=== PATIENT | female | born 1995 | race Caucasian/White ===

== ENCOUNTER → 2017-04-13 | Outpatient (CLI) | payer BC ==
[2017-04-13 14:45] LABS: BASOPHILS % 0.7 % (0.0-2.0); EOSINOPHILS % 1.9 % (0.0-5.0); HEMATOCRIT. 37.8 % (36.0-48.0); HEMOGLOBIN. 12.9 g/dL (12.0-16.0); LYMPHOCYTES % 28.6 % (20.0-50.0); MEAN CORPUSCULAR HEMOGLOBIN 29.9 pg (28.0-32.0); MEAN PLATELET VOLUME 8.5 fl (7.4-10.4); NEUTROPHILS % 63.8 % (40.0-76.0); PLATELET 200 x1000/uL (130-400); RED CELL DISTRIBUTION WIDTH 13.6 % (11.6-14.6)
[2017-04-13 14:51] LABS: CLARITY URINE SL HAZY (CLEAR); COLOR URINE YELLOW (YELLOW); GLUCOSE URINE NEGATIVE (NEGATIVE); KETONES URINE NEGATIVE (NEGATIVE); LEUKOCYTE ESTERASE URINE 1+ (NEGATIVE); NITRITE URINE NEGATIVE (NEGATIVE); OCCULT BLOOD URINE NEGATIVE (NEGATIVE); PROTEIN URINE NEGATIVE (NEGATIVE); SPECIFIC GRAVITY URINE 1.026 (1.005-1.030); UROBILINOGEN URINE 0.2 E.U./dL (0.2-1.0)
[2017-04-13 15:14] LABS: CARBON DIOXIDE 25 mEq/L (21-32); CHLORIDE 107 mEq/L (98-107); HDL CHOLESTEROL 59 mg/dL (40-59); LDL CHOLESTEROL 53 mg/dL (5-100); T4 FREE 1.06 ng/dL (0.76-1.46)
== END | disposition home or self-care (01) ==
LOC: LAB 14:17
PROVIDERS: ATTEND Internal Medicine
DX: Z79.01 Long term (current) use of anticoagulants (principal); Z79.899 Other long term (current) drug therapy
CPT/HCPCS: 36415; 80053; 80061; 81001; 84439; 84443; 84481; 84550; 85025

== ENCOUNTER 2018-06-24 17:40 | Emergency (ER) | payer BC ==
[~2018-06-24] VITALS: Ht 160 cm; Wt 57.0 kg
[2018-06-24 17:48] VITALS: BP 73/70
== END 2018-06-25 | disposition left against medical advice (07) ==
LOC: ER 22:20
DX: Z53.21 Procedure and treatment not carried out due to patient leaving prior to being seen by health care provider (principal)

== ENCOUNTER 2018-06-25 16:22 | Emergency (ER) | payer BC ==
[~2018-06-25] VITALS: Ht 160 cm; Wt 57.0 kg
[2018-06-26 02:29] VITALS: BP 110/62
[2018-06-26 02:29] LABS: CLARITY URINE TURBID (CLEAR); COLOR URINE YELLOW (YELLOW); KETONES URINE TRACE (NEGATIVE); LEUKOCYTE ESTERASE URINE NEGATIVE (NEGATIVE); NITRITE URINE NEGATIVE (NEGATIVE); OCCULT BLOOD URINE 3+ (NEGATIVE); PROTEIN URINE TRACE (NEGATIVE); SPECIFIC GRAVITY URINE 1.038 (1.005-1.030)
== END 2018-06-26 02:30 | disposition home or self-care (01) ==
LOC: ER 16:22
DX: S06.0X9A Concussion with loss of consciousness of unspecified duration, initial encounter (principal); W01.0XXA Fall on same level from slipping, tripping and stumbling without subsequent striking against object, initial encounter; Y93.89 Activity, other specified; Y92.018 Other place in single-family (private) house as the place of occurrence of the external cause
CPT/HCPCS: 81025; 99284

== ENCOUNTER → 2019-07-10 | Outpatient (CLI) | payer BC ==
[2019-07-10 08:54] LABS: HEMATOCRIT 32.1 % (36.0-48.0)
== END | disposition home or self-care (01) ==
LOC: LAB 07:18
PROVIDERS: ATTEND Obstetrics & Gynecology Obstetrics
DX: O24.419 Gestational diabetes mellitus in pregnancy, unspecified control (principal); Z3A.00 Weeks of gestation of pregnancy not specified
CPT/HCPCS: 36415; 82950; 85014; 85018

== ENCOUNTER 2019-09-20 15:10 | Observation (INO) | payer BC ==
[~2019-09-20] VITALS: Ht 160 cm; Wt 70.3 kg
[2019-09-25] MEDS ORDERED: PREN1TAB78 PO (05:41)
[2019-09-25] MEDS ORDERED: FERR-71 PO (05:41)
== END 2019-09-25 07:05 | disposition home or self-care (01) ==
LOC: 8 EST LDRP 09-25 05:13
PROVIDERS: ADMIT Obstetrics & Gynecology Obstetrics; ATTEND Obstetrics & Gynecology Obstetrics
DX: O62.9 Abnormality of forces of labor, unspecified (principal); Z3A.39 39 weeks gestation of pregnancy
CPT/HCPCS: 99281; G0378

== ENCOUNTER 2019-09-25 18:55 | Inpatient (IN) | payer BC ==
[~2019-09-25] VITALS: Ht 160 cm; Wt 70.3 kg
[~2019-09-25 18:55] MED LIST: FERR-71 PO; PREN1TAB78 PO
[2019-09-25] MEDS ORDERED: MISOPROSTOL 200MCG TABLET VG SCH (20:00)
[2019-09-25] MEDS ORDERED: METHYLERGONOVINE MALEATE 0.2 MG/ML IM PRN (20:00)
[2019-09-25] MEDS ORDERED: LIDOCAINE HCL 1% 20ML VIAL (Pyxis) INJ INFIL SCH (20:00)
[2019-09-25] MEDS ORDERED: CARBOPROST TROMETHAMINE 250 MCG/ML AMPUL IM PRN (20:00)
[2019-09-25] MEDS ORDERED: BUTORPHANOL TARTRATE 2 MG/ML VIAL IV PRN (20:00)
[2019-09-25] MEDS: LACTATED RINGERS 1,000 ML IV SCH ×2 (20:21→21:24)
[2019-09-25 20:38] LABS: INR 0.9; PARTIAL THROMBOPLASTIN TIME 32.3 sec (23.4-31.0); PROTHROMBIN TIME 9.5 sec (9.6-11.0)
[2019-09-25] MEDS ORDERED: AMPICILLIN 2,000 MG in SODIUM CHLORIDE 0.9% 100 ML IV SCH (21:00)
[2019-09-25 21:05] LABS: BASOPHILS % 0.4 % (0.0-2.0); HEMATOCRIT. 37.5 % (36.0-48.0); HEMOGLOBIN. 12.9 g/dL (12.0-16.0); LYMPHOCYTES % 14.2 % (20.0-50.0); MEAN CORPUSCULAR HEMOGLOBIN 31.6 pg (28.0-32.0); MEAN CORPUSCULAR VOLUME 91.9 fL (81.0-99.0); MEAN PLATELET VOLUME 11.8 fl (7.4-10.4); MONOCYTES % 3.2 % (2.0-8.0); NEUTROPHILS % 82.2 % (40.0-76.0); PLATELET 117 x1000/uL (130-400); RED BLOOD CELL COUNT 4.08 mill/uL (4.2-5.4); RED CELL DISTRIBUTION WIDTH 14.6 % (11.6-14.6)
[2019-09-25 21:06] LABS: HEPATITIS B SURFACE ANTIGEN NEGATIVE
[2019-09-25] MEDS ORDERED: ONDANSETRON HCL 4MG/2ML INJ IV PRN (21:30)
[2019-09-25] MEDS ORDERED: DIPHENHYDRAMINE 50MG/ML VIAL IM PRN (21:30)
[2019-09-25] MEDS ORDERED: ROPIVACAINE HCL/PF EPIDURAL 200 ML EPI SCH (21:30)
[2019-09-25] MEDS: DEXT 5%/LR + PITOCIN 20UNITS/L 1,000 ML IV SCH (21:59)
[2019-09-26] MEDS: LACTATED RINGERS 1,000 ML IV SCH ×2 (01:57→10:15)
[2019-09-26] MEDS ORDERED: AMPICILLIN 1,000 MG in SODIUM CHLORIDE 0.9% 50 ML IV SCH (03:00)
[2019-09-26] MEDS: DEXT 5%/LR + PITOCIN 20UNITS/L 1,000 ML IV SCH (13:38)
[2019-09-26] MEDS ORDERED: LIDOCAINE HCL 2%/EPINEPHRINE 1:100,000 20 ML VIAL INFIL ONE (13:39)
[2019-09-26 16:00] VITALS: BP 116/68
[2019-09-26 17:00] VITALS: BP 110/71
[2019-09-26] MEDS ORDERED: IBUPROFEN 600MG TABLET PO PRN (17:45)
[2019-09-26] MEDS ORDERED: BENZOCAINE/LANOLIN/ALOE VERA SPRAY TOP PRN (17:45)
[2019-09-26] MEDS: IBUPROFEN 800MG TABLET PO PRN ×2 (17:52→23:55)
[2019-09-26 19:30] VITALS: BP 111/71
[2019-09-27 04:00] VITALS: BP 108/66
[2019-09-27] MEDS ORDERED: IBUP-2030 PO (07:02)
[2019-09-27 07:27] LABS: BASOPHILS % 0.2 % (0.0-2.0); HEMATOCRIT. 26.6 % (36.0-48.0); HEMOGLOBIN. 9.3 g/dL (12.0-16.0); MEAN CORPUSCULAR VOLUME 91.7 fL (81.0-99.0); MONOCYTES % 3.7 % (2.0-8.0); NEUTROPHILS % 87.1 % (40.0-76.0); PLATELET 97 x1000/uL (130-400)
[2019-09-27 08:00] VITALS: BP 121/64
[2019-09-27 08:19] VITALS: BP 108/66
[2019-09-27] MEDS: IBUPROFEN 800MG TABLET PO PRN (08:19)
== END 2019-09-27 13:00 | disposition home or self-care (01) | DRG 807 ==
LOC: UNDOADMOB 18:55 → 8EST NSY 18:55 → OBSVTOIN 19:34 → 8 EST LDRP 19:34 → 8EST 09-26 15:42
PROVIDERS: ADMIT Obstetrics & Gynecology Obstetrics; ATTEND Obstetrics & Gynecology Obstetrics
PROC: 10E0XZZ Delivery of Products of Conception, External Approach (ICD-10-PCS; principal; 2019-09-27)
PROC: 0W8NXZZ Division of Female Perineum, External Approach (ICD-10-PCS; 2019-09-27)
PROC: 3E0R3BZ Introduction of Anesthetic Agent into Spinal Canal, Percutaneous Approach (ICD-10-PCS; 2019-09-27)
PROC: 00HU33Z Insertion of Infusion Device into Spinal Canal, Percutaneous Approach (ICD-10-PCS; 2019-09-27)
DX: O69.81X0 Labor and delivery complicated by cord around neck, without compression, not applicable or unspecified (principal); Z37.0 Single live birth; Z3A.39 39 weeks gestation of pregnancy
CPT/HCPCS: 36415; 85025; 86592; 86703; 86762; 86850; 86900; 87340; 99281; J0290; J2590; J2795; J3490; J7050; J7120